=== PATIENT | female | born 1935 | race Caucasian/White ===

== ENCOUNTER 2017-01-27 04:53 | Emergency (ER) | payer BC, MEDICAID ==
--- NOTE | 2017-01-27 05:06 | Emergency Department Record ---
History of Present Illness - General Chief Complaint: Fall Injury Stated Complaint: FALL Time Seen by Provider: 01/27/17 05:00 Source: Patient Mode of Arrival: EMS Limitations: No limitations - History of Present Illness Initial Comments: 81 yo female presents to ED with a CC of fall from [facility] this morning. Patient reports trip and fall this morning, denies injury. Patient denies pain to the head or neck, denies any extremity pain or weakness. Complaint: Fall Onset/Timin -: Hour(s) When Fall Occurred: [address] Fall Occurred: Home Loss of Consciousness: None Prolonged Down Time?: No Symptoms Prior to Fall: None Severity: Mild - Em Coma Scale Eye Response: (4) Open spontaneously Motor Response: (6) Obeys commands Verbal Response: (5) Oriented [place] Total: 15 - Related Data Home Medications Medication Instructions Recorded Confirmed Last Taken Acetaminophen [Tylenol Extra 500 mg PO TID 12/31/15 01/27/17 01/26/17 Strength] Aspirin, Regular 81 mg PO DAILY 12/31/15 01/27/17 01/27/17 Atorvastatin Calcium [Lipitor] 10 mg PO QHS 12/31/15 01/27/17 01/26/17 Citalopram Hydrobromide [Celexa] 40 mg PO DAILY 12/31/15 01/27/17 01/26/17 Cyclosporine [Restasis] 1 each OP BID 12/31/15 01/27/17 12/31/15 Lisinopril 5 mg PO DAILY 12/31/15 01/27/17 01/26/17 Magnesium Hydroxide [Milk of 30 ml PO ASDIR PRN 12/31/15 01/27/17 Unknown Magnesia] Memantine HCl [Namenda Xr] 28 mg PO DAILY 12/31/15 01/27/17 01/26/17 Metoprolol Succinate [Toprol Xl] 25 mg PO DAILY 12/31/15 01/27/17 01/26/17 Omeprazole 40 mg PO DAILY 12/31/15 01/27/17 01/26/17 Fexofenadine HCl 180 mg PO DAILY 04/13/16 01/27/17 01/26/17 Hydrochlorothiazide [Hctz 25Mg] 12.5 mg PO DAILY 04/13/16 01/27/17 01/26/17 Ipratropium [place] [Atrovent] 2 spray NS TID 04/13/16 01/27/17 Unknown Potassium Chloride [Klor-Con] 10 meq PO DAILY 04/13/16 01/27/17 01/26/17 Acetaminophen [Tylenol 325Mg] 325 mg PO Q4H PRN 07/17/16 01/27/17 Unknown Acetaminophen with Codeine 1 tab PO Q6H PRN 07/17/16 01/27/17 01/20/17 [Tylenol #3] Guaifen/Dextromethorphan/PE 5 ml PO Q6H PRN 07/17/16 01/27/17 Unknown [Robafen Cf Liquid] Guaifenesin [Mucinex] 600 mg PO BID PRN 07/17/16 01/27/17 Unknown Polyethylene Glycol 3350 [Miralax] 1 packet PO DAILY PRN 07/17/16 01/27/17 Unknown Guaifen/Dextromethorphan/PE 10 ml PO Q6H PRN 01/27/17 01/27/17 01/13/17 [Robafen Cf Liquid] Meloxicam [Mobic] 7.5 mg PO DAILY 01/27/17 01/27/17 01/26/17 Memantine HCl [Namenda Xr] 28 mg PO DAILY 01/27/17 01/27/17 01/26/17 Allergies Allergy/AdvReac Type Severity Reaction Status Date / Time Sulfa (Sulfonamide Allergy Unknown PT UNSURE Verified 07/17/16 19:06 Antibiotics) OF REACTION Review of Systems Constitutional: Denies: Chills, Fever Eyes: Denies: Eye discharge, Eye pain ENT: Denies: Congestion, Ear pain Respiratory: Denies: Cough, Dyspnea Cardiovascular: Denies: Chest pain, Dyspnea on exertion Endocrine: Denies: Fatigue, Heat or cold intolerance Gastrointestinal: Denies: Diarrhea, Nausea, Vomiting Genitourinary: Denies: Dysuria, Frequency Musculoskeletal: Denies: Arthralgia, Back pain, Gout, Joint swelling Skin: Denies: Bruising, Change in color Neurological: Denies: Abnormal gait, Confusion, Headache, Seizure Psychiatric: Denies: Anxiety Hematological/Lymphatic: Denies: Anemia, Blood Clots Past Medical History - SOCIAL HISTORY Smoking Status: Former smoker - RESPIRATORY Hx Respiratory Disorders: Yes Hx COPD: Yes - CARDIOVASCULAR Hx Cardio Disorders: Yes Hx Hypertension: Yes Comment:: Chronic ischemic heart disease; hyperlipidemia - NEURO Hx Neuro Disorders: Yes Hx CVA: Yes Hx Dementia: Yes Hx TIA: Yes Comment:: Hemiplegia, hemiparesis- L side - GI Hx GI Disorders: Yes Hx Reflux: Yes Comment:: Mcdonald's esophagus - Hx Genitourinary Disorders: Yes Comment:: urinary retention - ENDOCRINE Hx Endocrine Disorders: Yes Hx Diabetes: Yes - MUSCULOSKELETAL Hx Musculoskeletal Disorders: Yes - PSYCH Hx Psych Problems: No - HEMATOLOGY/ONCOLOGY Hx Hematology/Oncology Disorders: No Family Medical History Family Hx Comment (NOT TO BE USED IN PLACE OF ITEMS BELOW): unknown Hx Heart Disease: Brother/Sister Physical Exam - General General Appearance: Alert, Oriented x3, Cooperative, No acute distress Limitations: No limitations - Head Head exam: Atraumatic, Normocephalic, Normal inspection Head exam detail: negative: Abrasion, Contusion, Moreira's sign, General tenderness, Hematoma, Laceration - Eye Eye exam: Normal appearance. negative: Conjunctival injection, Periorbital swelling, Periorbital tenderness, Scleral icterus - ENT Ear exam: negative: Auricular hematoma, Auricular trauma Nasal Exam: negative: Active bleeding, Discharge, Dried blood, Foreign body Mouth exam: negative: Drooling, Laceration, Muffled voice, Tongue elevation - Neck Neck exam: Normal inspection. negative: Meningismus, Tenderness - Respiratory Respiratory exam: Normal lung sounds bilaterally. negative: Rales, Respiratory distress, Rhonchi, Stridor - Cardiovascular Cardiovascular Exam: Regular rate, Normal rhythm, Normal heart sounds - GI/Abdominal GI/Abdominal exam: Soft. negative: Rebound, Rigid, Tenderness - Rectal Rectal exam: Deferred - exam: Deferred - Extremities Extremities exam: Normal inspection. negative: Calf tenderness, Pedal edema, Tenderness - Back Back exam: Denies: CVA tenderness (R), CVA tenderness (L) - Neurological Neurological exam: Alert, Oriented X3. negative: Motor sensory deficit - Psychiatric Psychiatric exam: Normal affect, Normal mood - Skin Skin exam: Normal color. negative: Abrasion Type of lesion: negative: abrasion Course - Reevaluation(s) Reevaluation #1: 01/27/17 05:05 Patient is well appearing on examination, no evidence for acute injury or CVA. Will obtain imaging of the head and neck and reassess. Reevaluation #2: 01/27/17 05:51 CT Brain: Scalp STS, no underlying intracranial injury is present. CT Cervical Spine: No acute traumatic injury identified. Disposition Disposition: Discharge Clinical Impression: Fall Qualifiers: Encounter type: initial encounter Qualified Code(s): W19.XXXA - Unspecified fall, initial encounter Disposition: Home, Self-Care Condition: (2) Stable Instructions: Fall Prevention for Older Adults (ED) Additional Instructions: Return to ED if your symptoms worsen or if you have any concerns. Follow-up with your family doctor in 3-5 days as directed. Forms: Patient Portal Access Time of Disposition: 06:07
== END 2017-01-27 08:00 | disposition home or self-care (01) ==
LOC: ER 04:53
DX: S09.90XA Unspecified injury of head, initial encounter (principal); S19.9XXA Unspecified injury of neck, initial encounter; R51 Headache; W01.0XXA Fall on same level from slipping, tripping and stumbling without subsequent striking against object, initial encounter; Y92.129 Unspecified place in nursing home as the place of occurrence of the external cause
CPT/HCPCS: 70450; 72125; 99283

== ENCOUNTER 2017-07-13 20:41 | Emergency (ER) | payer BC, MEDICAID ==
[2017-07-13] MEDS ORDERED: HYDROCODONE/APAP 5/325MG TABLET PO ONE (21:18)
[2017-07-13 21:39] LABS: BASO % 0.6 % (0-6); EOS % 2.6 % (0-6); GRAN % 43.2 % (47-80); HEMATOCRIT 33.9 % (35.0-47.0); HEMOGLOBIN 10.7 gm/dl (11.6-16.0); LYMPH % 42.4 % (16-45); MEAN CELL VOLUME 102.1 fl (81-97); MEAN CORPUSCULAR HEMOGLOBIN 32.2 pg (27-33); MEAN CORPUSCULAR HGB CONC 31.6 g/dl (32-36); MEAN PLATELET VOLUME 9.7 fl (7.4-10.4); MONO % 11.2 % (0-9); PLATELET COUNT 256 K/uL (130-400); RED BLOOD COUNT 3.32 M/uL (3.80-5.40); RED CELL DISTRIBUTION WIDTH 14.6 % (11.5-14.5); WHITE BLOOD COUNT W/O DIFF 6.3 K/uL (4.2-12.2)
--- NOTE | 2017-07-13 21:47 | Emergency Department Record ---
History of Present Illness - General Chief Complaint: Back Pain/Injury Stated Complaint: BACK PAIN Time Seen by Provider: 07/13/17 20:47 Source: Patient, Family Mode of Arrival: Ambulatory Limitations: No limitations - History of Present Illness Initial Comments: pt has a hx of chronic back pain in the past which has gotten worse in last day. she does not recall any new injury. no neuro symmptoms. the pain is in the right lower back with radiation down right leg. MD Complaint: Back pain Onset/Timin -: Days(s) Similar Symptoms Previously: Yes Place: Home Consistency: Constant Improves With: None Worsens With: None Associated Symptoms: Denies other symptoms Treatments Prior to Arrival: Acetaminophen - Related Data Home Medications Medication Instructions Recorded Confirmed Last Taken Calcium Carbonate [Tums] 500 mg PO Q6H 07/13/17 07/13/17 Unknown Donepezil HCl [Aricept] 10 mg PO DAILY 07/13/17 07/13/17 Unknown Lisinopril [Zestril] 5 mg PO DAILY 07/13/17 07/13/17 Unknown Previous Rx's Medication Instructions Recorded Hydrocodone/Acetaminophen [[place] 0.5 each PO TID #7 tablet 07/13/17 5-325 Tablet] Allergies Allergy/AdvReac Type Severity Reaction Status Date / Time Sulfa (Sulfonamide Allergy Unknown PT UNSURE Verified 07/17/16 19:06 Antibiotics) OF REACTION Travel Screening - Travel/Exposure Within Last 30 Days Have you traveled within the last 30 days?: No - Travel/Exposure Within Last Year Have you traveled outside the [place] in the last year?: No - Additonal Travel Details Have you been exposed to anyone with a communicable illness?: No - Travel Symptoms Symptom Screening: None Review of Systems Reviewed: No additional complaints except as noted below Constitutional: Reports: As per HPI. Denies: Chills, Fever, Malaise, Night sweats, Weakness, Weight change Eyes: Reports: As per HPI. Denies: Eye discharge, Eye pain, Photophobia, Vision change ENT: Reports: As per HPI. Denies: Congestion, Dental pain, Ear pain, Epistaxis , Hearing loss, Throat pain Respiratory: Reports: As per HPI. Denies: Cough, Dyspnea, Hemoptysis, Stridor, Wheezes Cardiovascular: Reports: As per HPI. Denies: Arrhythmia, Chest pain, Dyspnea on exertion, Edema, Murmurs, Orthopnea, Palpitations, Paroxysmal nocturnal dyspnea, Rheumatic Fever, Syncope Endocrine: Reports: As per HPI. Denies: Fatigue, Heat or cold intolerance, Polydipsia, Polyuria Gastrointestinal: Reports: As per HPI. Denies: Abdominal pain, Constipation, Diarrhea, Hematemesis, Hematochezia, Melena, Nausea, Vomiting Genitourinary: Reports: As per HPI. Denies: Abnormal menses, Discharge, Dyspareunia, Dysuria, Frequency, Hematuria, Incontinence, Retention, Urgency Musculoskeletal: Reports: As per HPI. Denies: Arthralgia, Back pain, Gout, Joint swelling, Myalgia, Neck pain Skin: Reports: As per HPI. Denies: Bruising, Change in color, Change in hair/ nails, Lesions, Pruritus, Rash Neurological: Reports: As per HPI. Denies: Abnormal gait, Confusion, Headache, Numbness, Paresthesias, Seizure, Tingling, Tremors, Vertigo, Weakness Psychiatric: Reports: As per HPI. Denies: Anxiety, Auditory hallucinations, Depression, Homicidal thoughts, Suicidal thoughts, Visual hallucinations Hematological/Lymphatic: Reports: As per HPI. Denies: Anemia, Blood Clots, Easy bleeding, Easy bruising, Swollen glands Past Medical History - SOCIAL HISTORY Smoking Status: Former smoker Alcohol Use: None Drug Use: None - RESPIRATORY Hx Respiratory Disorders: Yes Hx COPD: Yes - CARDIOVASCULAR Hx Cardio Disorders: Yes Hx Hypertension: Yes Comment:: Chronic ischemic heart disease; hyperlipidemia - NEURO Hx Neuro Disorders: Yes Hx CVA: Yes Hx Dementia: Yes Hx TIA: Yes Comment:: Hemiplegia, hemiparesis- L side - GI Hx GI Disorders: Yes Hx Reflux: Yes Comment:: Mcdonald's esophagus - Hx Genitourinary Disorders: Yes Comment:: urinary retention - ENDOCRINE Hx Endocrine Disorders: Yes Hx Diabetes: Yes - MUSCULOSKELETAL Hx Musculoskeletal Disorders: Yes Comment:: increased falls - PSYCH Hx Psych Problems: No - HEMATOLOGY/ONCOLOGY Hx Hematology/Oncology Disorders: No Family Medical History Any Significant Family History?: No Family Hx Comment (NOT TO BE USED IN PLACE OF ITEMS BELOW): unknown Hx Heart Disease: Brother/Sister Physical Exam - General General Appearance: Alert, Oriented x3, Cooperative, Mild distress - Head Head exam: Normal inspection - Eye Eye exam: Normal appearance, PERRL, EOMI Pupils: Normal accommodation - ENT ENT exam: Normal exam, Mucous membranes moist, Normal external ear exam, Normal orophraynx Ear exam: Normal external inspection. negative: External canal tenderness Nasal Exam: Normal inspection. negative: Discharge, Sinus tenderness Mouth exam: Normal external inspection, Tongue normal Teeth exam: Normal inspection. negative: Dental caries Throat exam: Normal inspection. negative: Tonsillar erythema, Tonsillar exudate - Neck Neck exam: Normal inspection, Full ROM. negative: Tenderness - Respiratory Respiratory exam: Normal lung sounds bilaterally. negative: Respiratory distress - Cardiovascular Cardiovascular Exam: Regular rate, Normal rhythm, Normal heart sounds - GI/Abdominal GI/Abdominal exam: Soft, Normal bowel sounds. negative: Tenderness - Rectal Rectal exam: Deferred - exam: Deferred - Extremities Extremities exam: Normal inspection, Full ROM, Normal capillary refill. negative: Tenderness - Back Back exam: Reports: Muscle spasm, Tenderness. Denies: Full ROM, Rash noted - Neurological Neurological exam: Alert, CN II-XII intact, Normal gait, Oriented X3 - Psychiatric Psychiatric exam: Normal affect, Normal mood - Skin Skin exam: Dry, Intact, Normal color, Warm Course Vital Signs 07/13/17 20:45 Temperature 97.9 F Pulse Rate 53 L Respiratory 20 Rate Blood Pressure 133/64 Pulse Ox 95 - Reevaluation(s) Reevaluation #1: 07/13/17 22:23 feels better Medical Decision Making - Lab Data Result diagrams: 07/13/17 21:33 07/13/17 21:33 Lab Results 07/13/17 Range/Units 21:33 WBC 6.3 (4.2-12.2) K/uL RBC 3.32 L (3.80-5.40) M/uL Hgb 10.7 L (11.6-16.0) gm/dl Hct 33.9 L (35.0-47.0) % MCV 102.1 H (81-97) fl MCH 32.2 (27-33) pg MCHC 31.6 L (32-36) g/dl RDW 14.6 H (11.5-14.5) % Plt Count 256 (130-400) K/uL MPV 9.7 (7.4-10.4) fl Gran % 43.2 L (47-80) % Lymphocytes % 42.4 (16-45) % Monocytes % 11.2 H (0-9) % Eosinophils % 2.6 (0-6) % Basophils % 0.6 (0-6) % Disposition Disposition: Discharge Clinical Impression: Sciatica Qualifiers: Laterality: right Qualified Code(s): M54.31 - Sciatica, right side Disposition: Home, Self-Care Condition: (1) Good Instructions: Low Back Strain (ED), Sciatica (ED), Lumbar Radiculopathy (ED) Additional Instructions: follow up with family doctor. return sooner if worse. moist heat to back 4 times a day Prescriptions: Hydrocodone/Acetaminophen [[place] 5-325 Tablet] 0.5 each PO TID #7 tablet Forms: Patient Portal Access Quality - Quality Measures Quality Measures: N/A - Blood Pressure Screening Does Patient Have Any of the Following: No Blood Pressure Classification: Pre-Hypertensive BP Reading Systolic Measurement: 133 Diastolic Measurement: 64 Screening for High Blood Pressure: < Pre-Hypertensive BP, F/U Documented > [ G8950] Pre-Hypertensive Follow-up Interventions: Follow-up with rescreen every year.
[2017-07-13 21:55] LABS: BLOOD UREA NITROGEN 25 mg/dL (8-23); CREATININE 0.9 mg/dL (0.5-0.9); EST GLOMERULAR FILTRATION RATE > 60 mL/min; GLUCOSE,RANDOM 112 mg/dL (74-109)
--- NOTE | 2017-07-14 14:39 | RADIOLOGY REPORT ---
EXAM: LUMBAR SPINE, AP AND LATERAL VIEWS HISTORY: RIGHT LOWER BACK PAIN. NO REPORTED INJURY. TECHNIQUE: AP and lateral views of the lumbar spine were obtained as well as a spot lateral view of the lumbosacral junction. Comparison: Lumbar spine two views dated 07/17/16. FINDINGS: Diffuse osteopenia limits evaluation. Five non-rib bearing lumbar type vertebra redemonstrated. Mild dextroconvex scoliosis centered at the L1- L2 level is redemonstrated with secondary to levoconvex curvature centered at the L4-L5 level. There is straightening of the normal cervical lordosis. No acute fracture nor dislocation is seen. No lytic or blastic bone lesion. Multilevel degenerative disk/degenerative end plate changes are identified most pronounced at the L2-L3 level where the changes are moderate to advanced. They are mild at the L1-L2, L3-L4, and L5-S1 levels and mild to moderate at the L4- L5 level. Multilevel facet arthropathy is suggested most pronounced at the lower levels where they are moderate in degree. There is diffuse atherosclerosis without gross aneurysmal dilatation of the abdominal aorta. There are mild degenerative changes of the hips. Surgical clips project at the level of the proximal stomach. IMPRESSION: 1. DIFFUSE OSTEOPENIA LIMITS EVALUATION. 2. MULTILEVEL DEGENERATIVE CHANGES, DISCUSSED ABOVE ASSOCIATED WITH MILD S- SHAPED SCOLIOSIS. NO ACUTE FRACTURE NOR DESTRUCTIVE BONE LESION. NO GROSS CHANGE SINCE 07/17/16. JOB NUMBER: [id number] MTDD
== END 2017-07-13 22:41 | disposition home or self-care (01) ==
LOC: ER 20:41
DX: M54.31 Sciatica, right side (principal); J44.9 Chronic obstructive pulmonary disease, unspecified; I69.954 Hemiplegia and hemiparesis following unspecified cerebrovascular disease affecting left non-dominant side; I10 Essential (primary) hypertension; Z87.891 Personal history of nicotine dependence
CPT/HCPCS: 72100; 80048; 85025; 99283; 99284

== ENCOUNTER 2018-03-21 10:50 | Day surgery (SDC) | payer BC ==
[~2018-03-21 10:50] MED LIST: ACETAMINOPHEN 1,000 MG/100 ML BTL IV ONE; CEFAZOLIN 1 Gram 1 GM/50 ML BAG IVPB ONE
[2018-03-21] MEDS ORDERED: BUPIVACAINE 0.25% W/EPI MPF 30ML VIAL IVP ONE (10:51)
[2018-03-21] MEDS ORDERED: PROPOFOL 10 MG/ML VIAL IV ONE (10:51)
[2018-03-21] MEDS ORDERED: LIDOCAINE 1% MDV (10MG/ML) 20ML VIAL SQ ONE (10:51)
--- NOTE | 2018-03-22 08:20 | Operative Note ---
DATE OF SURGERY: 03/21/2018 Surgeon: Dominguez Power DO PREOPERATIVE DIAGNOSIS: Chest wall mass. POSTOPERATIVE DIAGNOSIS: Chest wall mass. OPERATION: Excision of chest wall mass measuring 3 x 2 cm in the subcu. Indication: The patient is an 82-year-old female who underwent a prior CABG procedure. She did develop what appeared to be infected sebaceous cyst overlying the Y on her chest. The infection had cleared up. We did discuss excision. Risks, benefits, and alternatives were discussed. Risks include bleeding, infection, postop wound infection, recurrence, need for local wound care and packing. She understood this fully. Thereafter, consent was signed and questions answered. PROCEDURE: The patient was taken to the operating room and placed in a supine position. Local IV sedation was given per the department of anesthesia. The patient's chest was prepped and draped in the usual sterile fashion. The area over the mass was anesthetized with a total of 8 mL of 0.25% Sensorcaine with epinephrine. A 3 cm incision was made. This was carried down to the capsule of what appeared to be a large sebaceous cyst. This was dissected free from the surrounding tissue and passed off the field. This did overly one of her inferior sternal wires. There is no active infection noted. The skin was then closed with 4-0 nylon in interrupted fashion. Triple antibiotic ointment was placed. She was taken to the recovery room in satisfactory condition. Final pathology pending. CC: Tad Loera DO [facility]
== END 2018-03-21 12:50 | disposition home or self-care (01) ==
LOC: SUR 10:50
PROVIDERS: ATTEND Surgery
DX: L72.3 Sebaceous cyst (principal); I10 Essential (primary) hypertension; E78.00 Pure hypercholesterolemia, unspecified; F03.90 Unspecified dementia, unspecified severity, without behavioral disturbance, psychotic disturbance, mood disturbance, and anxiety; M19.90 Unspecified osteoarthritis, unspecified site

== ENCOUNTER 2018-08-18 11:47 | Observation (INO) | payer BC, MEDICAID ==
--- NOTE | 2018-08-18 12:03 | Emergency Department Record ---
History of Present Illness - General Chief Complaint: Fall Injury Stated Complaint: FALL Time Seen by Provider: 08/18/18 11:55 Source: Patient, EMS Mode of Arrival: EMS Limitations: No limitations - History of Present Illness Initial Comments: The patient is here due to slipping out of her wheelchair and hitting the back of her head on an unknown object. There was no reported LOC but the patient does have mild head pain. She has had no visual changes, neck pain, nausea, vomiting, confusion and is NOT on any blood thinners. MD Complaint: Fall Onset/Timin -: Minutes(s) - Related Data Previous Rx's Medication Instructions Recorded Lisinopril [Prinivil] 10 mg PO DAILY #30 tab 08/18/18 Allergies Allergy/AdvReac Type Severity Reaction Status Date / Time Sulfa (Sulfonamide Allergy Unknown PT UNSURE Verified 08/18/18 11:57 Antibiotics) OF REACTION Review of Systems Constitutional: Denies: Chills, Fever Eyes: Denies: Eye discharge ENT: Denies: Congestion Respiratory: Denies: Cough, Dyspnea Cardiovascular: Denies: Chest pain Endocrine: Denies: Fatigue Gastrointestinal: Denies: Abdominal pain Genitourinary: Denies: Dysuria Musculoskeletal: Denies: Back pain Skin: Denies: Bruising Past Medical History - SOCIAL HISTORY Smoking Status: Former smoker Alcohol Use: None Drug Use: None - RESPIRATORY Hx Respiratory Disorders: Yes Hx Asthma: Yes (controlled) Hx COPD: Yes (former smoker for 30 years) Hx Pneumonia: Yes (walking pneumonia several times, last 2014) - CARDIOVASCULAR Hx Cardio Disorders: Yes Hx Hypertension: Yes (controlled now, had been very elevated in past) Hx Coronary Artery Disease: Yes Hx Coronary Artery Bypass Graft: Yes (TCABG 2010 after following stress test) Comment:: Chronic ischemic heart disease; hyperlipidemia - NEURO Hx Neuro Disorders: Yes Hx CVA: Yes (09/04/15) Hx Dementia: Yes ([place] and aricept,poot STM and LTM) Hx TIA: Yes (X5, prior to CVA) Hx Weakness: Yes (left side following CVA in 2010) Comment:: hemiparesis- L side - GI Hx GI Disorders: Yes Hx Reflux: Yes Hx Wt Loss/Wt Gain: Yes Comment:: Mcdonald's esophagus - Hx Genitourinary Disorders: Yes Hx Bladder Problem: Yes (Occ urinary and stool incontinence) Comment:: ?urinary retention - ENDOCRINE Hx Endocrine Disorders: Yes Hx Diabetes: Yes - MUSCULOSKELETAL Hx Musculoskeletal Disorders: Yes Hx Arthritis: Yes (low back, right back) Hx Osteoporosis: Yes Comment:: increased falls - PSYCH Hx Psych Problems: Yes Hx Anxiety: Yes (Combined, has depression/anxiety episodes) Hx Behavior Problems: Yes (associated with dementia) Hx Depression: Yes - HEMATOLOGY/ONCOLOGY Hx Hematology/Oncology Disorders: Yes Hx Cancer: Yes (melanoma around rectum) Family Medical History Any Significant Family History?: Yes Family Hx Comment (NOT TO BE USED IN PLACE OF ITEMS BELOW): unknown Hx Heart Disease: Father, Mother, Brother/Sister *Heart Comment: Brother, [place] 28, brother-recent CABG, daughter-[place] age 52 Hx HTN: Brother/Sister *HTN Comment: children,granddaughter Physical Exam - General General Appearance: Alert, Cooperative, No acute distress - Head Head exam: Normocephalic, Normal inspection. negative: Atraumatic (There is tenderness over the occiput but no hematoma, swelling, or abrasions are visualized.) - Eye Eye exam: Normal appearance, PERRL - ENT Throat exam: Normal inspection. negative: Tonsillar erythema, Tonsillar exudate - Neck Neck exam: Normal inspection, Full ROM. negative: Tenderness (There is no Cpine tenderness.) - Respiratory Respiratory exam: Normal lung sounds bilaterally. negative: Respiratory distress - Cardiovascular Cardiovascular Exam: Regular rate, Normal rhythm, Normal heart sounds - GI/Abdominal GI/Abdominal exam: Soft, Normal bowel sounds. negative: Tenderness - Extremities Extremities exam: Normal inspection, Full ROM, Normal capillary refill. negative: Tenderness - Back Back exam: Reports: Normal inspection. Denies: Vertebral tenderness - Neurological Neurological exam: Alert Course - Reevaluation(s) Reevaluation #1: The patient is doing well. She is conversing normally and denies any weakness or TAYLOR. I did discuss the plan with the patient's daughter and will recommend increasing the Lisinopril to 10 mg daily due to the elevated BP. 08/18/18 12:57 08/18/18 14:41 Reevaluation #2: The patient is ambulating normally with her walker and has no weakness, pain or dizziness. I did discuss the case with Dr. Loera and he agrees with the plan to increase the dose to 10 mg daily. The patient is laughing and joking with the staff and she has no complaints. 08/18/18 13:01 08/18/18 14:30 Reevaluation #3: The patient remains symptom free. The patient's daughter continues to be reluctant to take the patient back to [facility] due to her BP of 190/100. I did discuss the issues with Dr. Loera and he would like the patient to have a single dose of Clonidine to lower her BP prior to her returning to [facility]. The patient's BP has been elevated in the past similar to today also so it is not a new issue. 08/18/18 14:41 08/18/18 14:53 Reevaluation #4: The patient's BP now is actually a little low now. It is running 90's/50's. She is not symptomatic but due to her age and fraility we will do a short stay admission. I did discuss the case with Dr. Gamez and she does agree to the admission. 08/18/18 17:40 Medical Decision Making - Data Complexity MDM Data: Labs Ordered and/or Reviewed, X-Ray Ordered and/or Reviewed, EKG Ordered and/or Reviewed - Lab Data Result diagrams: 08/18/18 14:50 08/18/18 14:50 - EKG Data -: EKG Interpreted by Me EKG: No Acute Changes, Unchanged From Previous - Radiology Data Radiology results: Report reviewed (Head and neck CT: No acute changes.) Disposition Disposition: Admit Clinical Impression: Fall Qualifiers: Encounter type: initial encounter Qualified Code(s): W19.XXXA - Unspecified fall, initial encounter Disposition: Still a Patient at [facility] Decision to Admit: Admit from ER Decision to Admit Date: 08/18/18 Decision to Admit Time: 17:42 Accepting Physician: Marie Time Discussed w/Accepting Physician: 17:42 Condition: (2) Stable Instructions: Fall Prevention for Older Adults (ED) Additional Instructions: Please increase the Lisinopril to [address] see Dr[address] Loera on Wednesday for recheck. Return to the ER for any worsening symptoms. Prescriptions: Lisinopril [Prinivil] 10 mg PO DAILY #30 tab Forms: Patient Portal Access Time of Disposition: 13:03 Quality - Quality Measures Quality Measures: N/A - Blood Pressure Screening View Details: Yes Does Patient Have Any of the Following: Active Dx of HTN Blood Pressure Classification: Hypertensive Reading Systolic Measurement: 199 Diastolic Measurement: 109 Screening for High Blood Pressure: Patient Exclusion, Hx of HTN [G9744]
[2018-08-18] MEDS ORDERED: LISINOPRIL 5 MG TABLET PO ONE (13:01)
[2018-08-18] MEDS ORDERED: CLONIDINE HCL 0.1 MG TABLET PO ONE (14:39)
[2018-08-18 15:02] LABS: BASO % 0.4 % (0-6); EOS % 1.8 % (0-6); HEMATOCRIT 38.2 % (35.0-47.0); HEMOGLOBIN 12.5 gm/dl (11.6-16.0); LYMPH % 40.4 % (16-45); MEAN CORPUSCULAR HEMOGLOBIN 31.7 pg (27-33); MEAN CORPUSCULAR HGB CONC 32.7 g/dl (32-36); MEAN PLATELET VOLUME 9.7 fl (7.4-10.4); MONO % 7.4 % (0-9); PLATELET COUNT 279 K/uL (130-400); RED BLOOD COUNT 3.94 M/uL (3.80-5.40); RED CELL DISTRIBUTION WIDTH 14.6 % (11.5-14.5); WHITE BLOOD COUNT W/O DIFF 5.7 K/uL (4.2-12.2)
[2018-08-18 16:13] LABS: BLOOD UREA NITROGEN 11 mg/dL (8-23); CREATININE 0.7 mg/dL (0.5-0.9); EST GLOMERULAR FILTRATION RATE > 60 mL/min
[2018-08-18 16:14] LABS: TOTAL PROTEIN 6.4 g/dL (6.6-8.7)
[2018-08-18 16:16] LABS: GLUCOSE,RANDOM 93 mg/dL (74-109)
[2018-08-18 16:18] LABS: ALB/GLOB RATIO 1.8 (1.1-1.8); ALBUMIN 4.1 g/dL (4.0-5.0); ALKALINE PHOSPHATASE 60 U/L (35-104); ALT/SGPT 6 U/L (<33); AST/SGOT 14 U/L (10.0-35.0)
[2018-08-18] MEDS ORDERED: POTASSIUM CHLORIDE 20 MEQ TABLET PO ONE (16:29)
[2018-08-18] MEDS ORDERED: 0.9 % SODIUM CHLORIDE 1,000 ML BAG IV ONE (17:38)
[2018-08-18] MEDS ORDERED: PHENYLEPHRINE PO PRN (18:56)
[2018-08-18] MEDS ORDERED: GUAIFENESIN PO PRN (18:56)
[2018-08-18] MEDS ORDERED: ACETAMINOPHEN 325 MG TAB PO PRN (18:56)
[2018-08-18] MEDS ORDERED: DEXTROMETHORPHAN PO PRN (18:56)
[2018-08-18] MEDS: ATORVASTATIN 20 MG TABLET PO SCH (21:30)
[2018-08-18] MEDS ORDERED: IPRATROPIUM BROMIDE NS SCH (22:00)
[2018-08-18] MEDS ORDERED: Non-Formulary MISC (Cyclosporine [Restasis] 1 EACH) OP SCH (22:00)
--- NOTE | 2018-08-19 07:29 | CT SCAN REPORT ---
EXAM: CT OF THE BRAIN WITHOUT CONTRAST HISTORY: INJURY. TECHNIQUE: Sequential axial images were obtained from the foramen magnum to the vertex without contrast administration. FINDINGS: There is age appropriate cortical atrophy. There is periventricular small vessel ischemic change. There are small lacunar infarcts in the thalami. No large territorial infarct, hemorrhage, mass effect, or midline shift. No extraaxial fluid collection. The orbits appear normal. The mastoid air cells appear normal. There is no depressed skull fracture. IMPRESSION: 1. NO ACUTE INTRACRANIAL ABNORMALITY BY CT EXAMINATION. 2. PERIVENTRICULAR SMALL VESSEL ISCHEMIC CHANGE. SMALL LACUNAR INFARCTS IN BOTH THALAMI. JOB NUMBER: [id number] MTDD
--- NOTE | 2018-08-19 07:31 | CT SCAN REPORT ---
EXAM: CT OF THE CERVICAL SPINE HISTORY: INJURY. TECHNIQUE: Sequential axial images were obtained through the cervical spine without intravenous contrast administration. FINDINGS: There is no evidence of fracture, subluxation, or perched facet. There is facet arthropathy. The lateral masses are well aligned. The prevertebral soft tissues are normal. The airway is patent. IMPRESSION: MULTILEVEL DEGENERATIVE CHANGE. NO EVIDENCE OF FRACTURE, SUBLUXATION OR PERCHED FACET. JOB NUMBER: [id number] MTDD
[2018-08-19] MEDS: POTASSIUM CHLORIDE 10 MEQ TAB PO SCH (09:55)
[2018-08-19] MEDS: ASPIRIN 81 MG TABEC PO SCH (09:56)
[2018-08-19] MEDS ORDERED: DONEPEZIL HCL 5 MG TABLET PO SCH (10:00)
[2018-08-19] MEDS ORDERED: CITALOPRAM 20 MG TABLET PO SCH (10:00)
[2018-08-19] MEDS ORDERED: ASPIRIN 325 MG TABLET PO SCH (10:00)
[2018-08-19 11:15] LABS: URINE APPEARANCE CLEAR; URINE BILIRUBIN NEGATIVE (NEGATIVE); URINE BLOOD NEGATIVE (NEGATIVE); URINE COLOR YELLOW; URINE GLUCOSE (UA) NEGATIVE (NEGATIVE); URINE KETONE NEGATIVE (NEGATIVE); URINE LEUKOCYTE ESTERASE NEGATIVE (NEGATIVE); URINE NITRITE NEGATIVE (NEGATIVE); URINE PROTEIN NEGATIVE (NEGATIVE); URINE UROBILINOGEN 0.2 E.U./dL (0.20 - 1.00)
--- NOTE | 2018-08-19 13:10 | History & Physical ---
History of Present Illness - Date of Service Date of Service for History & Physical: 08/19/18 - History of Present Illness Admitting Diagnosis: 1. Labile blood pressure with Hypotension. History of Present Illness: PMH: HTN, CAD, Dementia, dysphagia ED COURSE: Daughter providing hx since the pt is a poor historian 2/2 to dementia. Daughter states that 2 days ago she was having dinner with her mother who was mumbling and couldn't focus very well. She states that she had asked the assisted living facility if they thought she should be evaluated for a stroke but she states that they said the hospital would not do anything for treatment if it was a stroke anyway. She decided not to bring her into the ER that day. Yesterday the daughter states that she received a phone call from the assisted living facility stating that the pt had a fall. She did not witness it but the pt did hit her head. She states that upon arrival to the ED her mother was complaining of a headache and her BP was elevated. Vitals: T98.5, P64, BP 199/109, RR 18 Labs: UA neg, CBC normal, CMP normal except K 3.3, TSH wnl. Imaging:CT head showed no acute process but old ischemic infarcts present. CT cervical spine did not show acute process. EKG: QTC 527, LVH otherwise wnl. Pt was given clonidine per Dr. Loera's permission and her BP dropped to 90/60' s. Pt was given some fluid to help bring up her BP and she was admitted overnight for observation given that she is at high risk for falls with her low BP. HOSPITAL COURSE: Today the daughter states that her mother is behaving about the same as she was over the last 2 days. She states that for the past 2 weeks she has noticed a decline in her mental function. She states that she also has generalized weakness. She believes that maybe it is time for her mother to be in a care facility that can offer her more attention. Her BP is back in normal range and the pt denies any headaches. Travel Screening - Travel/Exposure Within Last 30 Days Have you traveled within the last 30 days?: No - Travel/Exposure Within Last Year Have you traveled outside the [place] in the last year?: No - Additonal Travel Details Have you been exposed to anyone with a communicable illness?: No - Travel Symptoms Symptom Screening: None Review of Systems Constitutional: Reports: Weakness. Denies: Chills, Fever Eyes: Denies: Eye discharge, Vision change ENT: Denies: Congestion Respiratory: Denies: Cough, Dyspnea Cardiovascular: Denies: Chest pain Gastrointestinal: Denies: Abdominal pain, Constipation, Diarrhea, Nausea, Vomiting (Difficult to obtain given dementia) Genitourinary: Denies: Dysuria Musculoskeletal: Denies: Back pain Skin: Denies: Bruising Past Medical History - SOCIAL HISTORY Smoking Status: Former smoker Alcohol Use: None Drug Use: None - RESPIRATORY Hx Respiratory Disorders: Yes Hx Asthma: Yes (controlled) Hx COPD: Yes (former smoker for 30 years) Hx Pneumonia: Yes (walking pneumonia several times, last 2014) - CARDIOVASCULAR Hx Cardio Disorders: Yes Hx Hypertension: Yes (controlled now, had been very elevated in past) Hx Coronary Artery Disease: Yes Hx Coronary Artery Bypass Graft: Yes (TCABG 2011 after following stress test) Comment:: Chronic ischemic heart disease; hyperlipidemia - NEURO Hx Neuro Disorders: Yes Hx CVA: Yes (09/04/15) Hx Dementia: Yes (Onnamenda and aricept,poot STM and LTM) Hx TIA: Yes (X5, prior to CVA) Hx Weakness: Yes (left side following CVA in 2010) Comment:: hemiparesis- L side - GI Hx GI Disorders: Yes Hx Reflux: Yes Hx Wt Loss/Wt Gain: Yes Comment:: Mcdonald's esophagus - Hx Genitourinary Disorders: Yes Hx Bladder Problem: Yes (Occ urinary and stool incontinence) Comment:: ?urinary retention - ENDOCRINE Hx Endocrine Disorders: Yes Hx Diabetes: Yes - MUSCULOSKELETAL Hx Musculoskeletal Disorders: Yes Hx Arthritis: Yes (low back, right back) Hx Osteoporosis: Yes Comment:: increased falls - PSYCH Hx Psych Problems: Yes Hx Anxiety: Yes (Combined, has depression/anxiety episodes) Hx Behavior Problems: Yes (associated with dementia) Hx Depression: Yes - HEMATOLOGY/ONCOLOGY Hx Hematology/Oncology Disorders: Yes Hx Cancer: Yes (melanoma around rectum) Family Medical History Any Significant Family History?: Yes Family Hx Comment (NOT TO BE USED IN PLACE OF ITEMS BELOW): unknown Hx Heart Disease: Father, Mother, Brother/Sister *Heart Comment: Brother, [place] 28, brother-recent CABG, daughter-[place] age 52 Hx HTN: Brother/Sister *HTN Comment: children,granddaughter H&P Meds/Allergies - Allergies Allergies: Allergies Allergy/AdvReac Type Severity Reaction Status Date / Time Sulfa (Sulfonamide Allergy Unknown PT UNSURE Verified 08/18/18 11:57 Antibiotics) OF REACTION - Home Medications Previous Rx's Medication Instructions Recorded Lisinopril [Prinivil] 10 mg PO DAILY #30 tab 08/18/18 - Active Medications Active Medications: Current Medications Acetaminophen (Tylenol 325mg) 650 mg PO Q4H PRN PRN Reason: PAIN - MILD(1-4)/FEVER Last Admin: 08/19/18 01:43 Dose: 650 mg Aspirin (Ecotrin (Ec)) 81 mg PO DAILY [facility] Last Admin: 08/19/18 09:56 Dose: 81 mg Atorvastatin Calcium (Lipitor) 10 mg PO QHS [facility] Last Admin: 08/18/18 21:30 Dose: 10 mg Citalopram Hydrobromide (Celexa) 20 mg PO DAILY [facility] Last Admin: 08/19/18 09:57 Dose: 20 mg Hydrochlorothiazide (Hctz 12.5mg) 12.5 mg PO DAILY [facility] Lisinopril (Zestril) 5 mg PO DAILY [facility] Memantine (Namenda) 10 mg PO BID [facility] Non-Formulary Medication (Cyclosporine [Restasis]) 1 each OP BID [facility] Non-Formulary Medication (Guaifen/Dextromethorphan/Pe [Robafen Cf Liquid]) 5 ml PO Q6H PRN PRN Reason: COUGH Non-Formulary Medication (Ipratropium [place] [Atrovent]) 2 spray NS TID [facility] Potassium Chloride (Klor-Con) 10 meq PO DAILY [facility] Last Admin: 08/19/18 09:55 Dose: 10 meq Physical Exam - Vital Signs Vital Signs: Vital Signs - Last 24 Hrs Temp Pulse Pulse Resp BP BP Pulse Ox 08/19/18 10:00 97.9 F 64 18 132/68 93 L 08/19/18 09:00 55 L 64 18 08/19/18 06:44 99.4 F 08/19/18 05:00 100.4 F H 70 16 157/88 94 L 08/18/18 21:00 97.5 F L 47 L 16 118/53 95 08/18/18 18:56 97.7 F 55 L 16 74/29 96 08/18/18 17:31 56 L 18 98/42 95 08/18/18 16:48 70 99/52 08/18/18 15:55 188/90 08/18/18 14:45 190/100 08/18/18 14:23 66 18 185/95 94 L 08/18/18 13:53 66 18 180/78 98 08/18/18 13:29 66 20 203/102 - General General Appearance: Alert, Cooperative (smiling), No acute distress Limitations: Other (Pt has dementia is limited with orientation but is alert and follows commands well. Smiling) - Head Head exam: Normocephalic, Normal inspection. negative: Atraumatic (There is tenderness over the occiput but no hematoma, swelling, or abrasions are visualized.) - Eye Eye exam: Normal appearance, PERRL, EOMI. negative: Conjunctival injection, Periorbital swelling, Periorbital tenderness - ENT ENT exam: Normal exam, Mucous membranes moist Ear exam: Normal external inspection Nasal Exam: Normal inspection Throat exam: Normal inspection. negative: Tonsillar erythema, Tonsillar exudate - Neck Neck exam: Normal inspection, Full ROM - Respiratory Respiratory exam: Normal lung sounds bilaterally. negative: Respiratory distress - Cardiovascular Cardiovascular Exam: Regular rate, Normal rhythm, Systolic murmur (systolic ejection murmur, 3/6) - GI/Abdominal GI/Abdominal exam: Soft, Normal bowel sounds. negative: Tenderness - Extremities Extremities exam: Normal inspection, Full ROM. negative: Pedal edema, Tenderness - Neurological Neurological exam: Alert - Psychiatric Psychiatric exam: negative: Anxious, Depressed Results - Labs Result Diagrams: 08/18/18 14:50 08/18/18 14:50 Labs Last 24 Hours: Laboratory Results - last 24 hr 08/18/18 08/18/18 08/18/18 14:50 14:50 14:50 WBC 5.7 RBC 3.94 Hgb 12.5 Hct 38.2 MCV 97.0 MCH 31.7 MCHC 32.7 RDW 14.6 H Plt Count 279 MPV 9.7 Gran % 50.0 Lymphocytes % 40.4 Monocytes % 7.4 Eosinophils % 1.8 Basophils % 0.4 Sodium 143 Potassium 3.3 L Chloride 104 Carbon Dioxide 25.0 Anion Gap 14.0 BUN 11 Creatinine 0.7 Estimated GFR > 60 Random Glucose 93 Calcium 9.2 Total Bilirubin 0.40 AST 14 ALT 6 Alkaline Phosphatase 60 Total Protein 6.4 L Albumin 4.1 Globulin 2.3 Albumin/Globulin Ratio 1.8 TSH 1.34 Urine Color Urine Appearance Urine pH Ur Specific [place] Urine Protein Urine Glucose (UA) Urine Ketones Urine Blood Urine Nitrite Urine Bilirubin Urine Urobilinogen Ur Leukocyte Esterase 08/19/18 10:30 WBC RBC Hgb Hct MCV MCH MCHC RDW Plt Count MPV Gran % Lymphocytes % Monocytes % Eosinophils % Basophils % Sodium Potassium Chloride Carbon Dioxide Anion Gap BUN Creatinine Estimated GFR Random Glucose Calcium Total Bilirubin AST ALT Alkaline Phosphatase Total Protein Albumin Globulin Albumin/Globulin Ratio TSH Urine Color Yellow Urine Appearance Clear Urine pH 8.0 Ur Specific [place] 1.015 Urine Protein Negative Urine Glucose (UA) Negative Urine Ketones Negative Urine Blood Negative Urine Nitrite Negative Urine Bilirubin Negative Urine Urobilinogen 0.2 Ur Leukocyte Esterase Negative VTE H&P Assessment - Risk for VTE Risk for VTE: Yes Risk Level: Moderate Risk Assessment Date: 08/19/18 Risk Assessment Time: 13:40 VTE Orders Placed or Will Be Placed: No VTE Reason for No Prophylaxis: Contraindicated (given fall risk) Plan - Detailed Diagnosis and Plan (1) Altered mental status Current Visit: Yes Status: Acute Qualifiers: Altered mental status type: unspecified Qualified Code(s): R41.82 - Altered mental status, unspecified Base Code: R41.82 - ALTERED MENTAL STATUS, UNSPECIFIED Priority: High Comment: - Negative CT for acute process. 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 - Normal CBC, no evidence of infection. - Negative for pain today. No complaints/evidence of constipation or urinary retention. - Pt has dementia at baseline. Explained to daughter that dementia usually has a stepwise decline with time. - Continue memantine and donepezil. - cardiac monitor technician did not show arrythmia overnight. - Will D/C celexa and replace with zoloft given that celexa increases QTC with donepezil. - BP now at goal. - Rohit will need higher level of care, Case management c/s placed. (2) HTN, goal below 150/90 Current Visit: Yes Status: Chronic Base Code: I10 - ESSENTIAL (PRIMARY) HYPERTENSION Priority: High Comment: - Clonidine now starting to wear off. - Will restart home meds (lisinopril and HCTZ) in AM - If needed will also add back metoprolol 25 mg ER in AM (3) Hypokalemia Current Visit: Yes Status: Acute Base Code: E87.6 - HYPOKALEMIA Priority: Medium Comment: - S/P 20meq in ED and 10 meq in AM - will rpt in AM (4) Prolonged QT interval Current Visit: Yes Status: Acute Base Code: R94.31 - ABNORMAL ELECTROCARDIOGRAM [ECG] [EKG] Comment: - QTC 527 - Will D/C celexa and replace with zoloft given that celexa increases QTC with donepezil. - Rpt EKG in AM (5) Generalized weakness Current Visit: Yes Status: Acute Base Code: R53.1 - WEAKNESS Priority: High Comment: - Likely cause of fall in combination with worsening dementia. - PT and OT ordered. (6) Dementia Current Visit: Yes Status: Chronic Qualifiers: Dementia type: vascular dementia Dementia behavioral disturbance: with behavioral disturbance Qualified Code(s): F01.51 - Vascular dementia with behavioral disturbance Base Code: F03.90 - UNSPECIFIED DEMENTIA WITHOUT BEHAVIORAL DISTURBANCE Priority: Medium Comment: - likely worsening dementia. - Continue donepezil and mamantine as prescribed. (7) DVT prophylaxis Current Visit: Yes Status: Acute Base Code: GKD0200 - Priority: Low Comment: - Given recent falls and risk for intracranial bleed will hold off on pharmacotherapy at this time. Will continue aspirin as prescribed. - Will hold off on SCD's given that she has dementia and will likely agitate the pt and will contribute to delerium. Daughter states that the pt has sundowning issues. - Disposition pending PT/OT eval and placement
--- NOTE | 2018-08-19 14:15 | Rehab Evaluation ---
Patient Information - Patient Information Diagnosis: labile BP with hypotension Ordered Treatment: OT Evaluate and Treat Status: Initial Evaluation Surgery: No Past Medical/Surgical Hx: PAST MEDICAL/SURGICAL HISTORY Past Surgical History Appy; Hysterectomy; Triple Bypass; Rhizotomy; Excision melanoma around rectum X2 PMH - Respiratory Hx Respiratory Disorders Yes Hx Asthma Yes: controlled Hx Chronic Obstructive Yes: former smoker for 30 years Pulmonary Disease (COPD) Hx Pneumonia Yes: walking pneumonia several times, last 2014 PMH - Cardiovascular Hx Cardiovascular Disorders Yes Hx Hypertension Yes: controlled now, had been very elevated in past Hx Coronary Artery Disease Yes Hx Coronary Artery Bypass Yes: TCABG 2010 after following stress test Graft Hx Transient Ischemic Attacks Yes: X5, prior to CVA (TIA) Residual Deficits from CVA Yes: Dysphagia- fluids are thickened,weakness l side Comment: Chronic ischemic heart disease; hyperlipidemia PMH - Neuro Hx Neurological Disorders Yes Hx Cerebrovascular Accident Yes: 09/04/15 Hx Dementia Yes: Onnamenda and aricept,poot STM and LTM Hx Syncope Yes: hx of-related to BP over 1 year ago Hx Transient Ischemic Attacks Yes: X5, prior to CVA (TIA) Hx Weakness Yes: left side following CVA in 2010 Comment: hemiparesis- L side PMH - GI Hx Gastrointestinal Disorders Yes Hx Gastroesophageal Reflux Yes Hx Weight Loss/Weight Gain Yes Comment: Mcdonald's esophagus PMH - Hx Genitourinary Disorders Yes Patient No Hx Bladder Problem Yes: Occ urinary and stool incontinence Hx Renal Disease Yes: CKD stage 3 Comment: ?urinary retention PMH - Endocrine Hx Endocrine Disorders Yes Hx Diabetes Yes 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 Pt reports she lives alone in an apartment in [place] and is Ind with self cares , ambulates without an assistive device and eats in the cafeteria.) Social History: Detail (Supportive daughter and grand daughter) Precautions: [place], Fall - Time With Patient Total Time Spent With Patient (Min): 40 Treatment Procedures: Detail (OT eval low complexity) Subjective Information - Subjective Information Per Patient, Other (daughter and grand daughter) Objective Data - Pain Pain Present: No - Mental Status Patient Orientation: Person (Pt oriented to self, [facility] not able to state age or year, states month as "November". Pt able to follow all commands. Speech was slurred.) - Visual Perception Appears within normal limits for therapeutic activities - ROM Within normal limits (Ben UE AROM WNL) - Strength/Tone Within normal limits (Ben UE strength 4/5 throughout) - Coordination Appears within normal limits for therapeutic activities - Bed Mobility Independent (Ind with supine to sit) - Transfers Needs Assist (Min assist at times for sit to stand from EOB, wheelchair and toilet heights.) - Balance Balance Sitting: Good Balance Standing: Fair - Sensation Intact - Gait Detail (Pt amb short distance with 2 wheeled walker and CG assist as well as min assist to move walker at times.) - ADL's/IADL's Detail (Pt required mod assist to don slip on slippers. She was able to doff briefs with CG assist, toileted Indly, donned clean briefs with max assist to start over feet and to wire puller hips. Other ADLs not formally assessed.) Therapy Assessment - Therapy Assessment Detail (Pt presents with decreased orientation, decreased Ind with functional mobility and decreased Ind with self care skills. Family reports pts endurance has declined over the last couple of weeks.) Problem List - Problem List Occupational Therapy Problem List: Detail (1. Decreased Ind with self care skills. 2. Decreased orientation to place, month/year. 3. Decreased endurance needed for safe and Ind mobility and self cares.) Goals - Goals Occupational Therapy Goals: 1. Pt will be Ind and safe with total body dressing. 2. Pt will oriented to place and month. 3. Pt will improve overall endurance to allow safe and Ind functional mobility. Prognosis - Prognosis Good Plan - Plan Occupational Therapy Plan: OT 2-4 times per week to address self cares, functional mobility, cognition and activity tolerance. Pt would benefit from IP rehab stay to maximize her Ind and safety.
--- NOTE | 2018-08-19 14:18 | Rehab Evaluation ---
Patient Information - Patient Information Diagnosis: labile blood pressure, hypotension Ordered Treatment: PT Evaluate and Treat Status: Initial Evaluation History: Detail (Patient presented in ED on 08/18 after slipping out of her wheelchair at [facility] and hitting the back of her head.) Past Medical/Surgical Hx: PAST MEDICAL/SURGICAL HISTORY Past Surgical History Appy; Hysterectomy; Triple Bypass; Rhizotomy; Excision melanoma around rectum X2 PMH - Respiratory Hx Respiratory Disorders Yes Hx Asthma Yes: controlled Hx Chronic Obstructive Yes: former smoker for 30 years Pulmonary Disease (COPD) Hx Pneumonia Yes: walking pneumonia several times, last 2014 PMH - Cardiovascular Hx Cardiovascular Disorders Yes Hx Hypertension Yes: controlled now, had been very elevated in past Hx Coronary Artery Disease Yes Hx Coronary Artery Bypass Yes: TCABG 2010 after following stress test Graft Hx Transient Ischemic Attacks Yes: X5, prior to CVA (TIA) Residual Deficits from CVA Yes: Dysphagia- fluids are thickened,weakness l side Comment: Chronic ischemic heart disease; hyperlipidemia PMH - Neuro Hx Neurological Disorders Yes Hx Cerebrovascular Accident Yes: 09/04/15 Hx Dementia Yes: Onnamenda and aricept,poot STM and LTM Hx Syncope Yes: hx of-related to BP over 1 year ago Hx Transient Ischemic Attacks Yes: X5, prior to CVA (TIA) Hx Weakness Yes: left side following CVA in 2010 Comment: hemiparesis- L side PMH - GI Hx Gastrointestinal Disorders Yes Hx Gastroesophageal Reflux Yes Hx Weight Loss/Weight Gain Yes Comment: Mcdonald's esophagus PMH - Hx Genitourinary Disorders Yes Patient No Hx Bladder Problem Yes: Occ urinary and stool incontinence Hx Renal Disease Yes: CKD stage 3 Comment: ?urinary retention PMH - Endocrine Hx Endocrine Disorders Yes Hx Diabetes Yes Hx of NIDDM Yes: no oral meds for 2 years PMH - Musculoskeletal Hx Musculoskeletal Disorders Yes Hx Arthritis Yes: low back, right back Hx Osteoporosis Yes Comment: increased falls PMH - Psych Hx Psychiatric Problems Yes Hx Anxiety Yes: Combined, has depression/anxiety episodes Hx Behavior Problems Yes: associated with dementia Hx Depression Yes PMH - Hematology/Oncology Hx Hematology/Oncology Yes Disorders Hx Cancer Yes: melanoma around rectum Premorbid Status: Detail (The patient was a resident in [facility] and ambulated with walker and used a wheelchair for mobility. Per the patient's family, the patient had assistance with dressing and bathing.) Social History: Detail (Supportive family,) Precautions: [place], Fall - Time With Patient Total Time Spent With Patient (Min): 30 Treatment Procedures: Detail (Initial Evaluation) Subjective Information - Subjective Information Per Patient (The patient denied pain. The patient's speech was garbled at times. ) Objective Data - Mental Status Patient Orientation: Person (The patient knew her birthday but not age, current month or year. The patient stated when [facility] - ROM Within normal limits (The patient's LE AROM was WFL.) - Strength/Tone Not within normal limits (The patient's LE strength was generally 4 to 4+ throughout for patient's age.) - Bed Mobility Independent (The patient's bed mobility was independent with supine to sit.) - Transfers Needs Assist (The patient required minimal PA with sit to stand transfer and toilet transfer with verbal cues to push up from surface.) - Balance Balance Sitting: Good Balance Standing: Fair (The patient required support of walker to stand.) - Gait Detail (The patient ambulated with front wheeled walker a distance of 20 feet x 1 with CG/min assist at times to steer walker. The patient's gait pattern was charecterized by decreased stride length, shuffling steps and walker placed to far in front. The patient also required cueing to keep R foot within the walker. ) Therapy Assessment - Therapy Assessment Detail (The patient required assistance with transfers and ambulation. Due to cognitive status, the patient exhibited poor safety judement with mobility. The patient also exhibited decreased LE muscular endurance, expressing her legs were weak and tired. The patient's family was present for the evaluation. Recommend ongoing PT is a subacute rehabilitation setting to improve the patient 's functional level.) Problem List - Problem List Physical Therapy Problem List: Detail (1)Cognitive Status 2) Decreased LE muscular endurance 3) Assistance with transfers and ambulation 4) Decreased standing balance) Goals - Goals Physical Therapy Goals: 1) The patient will ambulate household distances with supervision for safety. 2) The patient will be independent / supervision with all transfers. 3) The patient will tolerate 30 minutes of physical activity with one rest period. 4) Assess the patient's balance using objective balance test. Prognosis - Prognosis Moderate Plan - Plan Physical Therapy Plan: PT 1 time a day M-F for gait training, transfer training , balance and LE strengthening/ muscular endurance exercises. Recommend subacute rehab.
[2018-08-19] MEDS: ATORVASTATIN 20 MG TABLET PO SCH (22:27)
[2018-08-20 06:52] LABS: HEMATOCRIT 35.9 % (35.0-47.0); HEMOGLOBIN 11.5 gm/dl (11.6-16.0); MEAN CELL VOLUME 97.3 fl (81-97); MEAN PLATELET VOLUME 9.7 fl (7.4-10.4); PLATELET COUNT 269 K/uL (130-400); RED BLOOD COUNT 3.69 M/uL (3.80-5.40); RED CELL DISTRIBUTION WIDTH 14.7 % (11.5-14.5); WHITE BLOOD COUNT W/O DIFF 5.3 K/uL (4.2-12.2)
[2018-08-20 06:58] LABS: MEAN CORPUSCULAR HEMOGLOBIN 31.1 pg (27-33)
[2018-08-20 07:10] LABS: PLATELET ESTIMATE NORMAL (NORMAL)
[2018-08-20 07:11] LABS: BLOOD UREA NITROGEN 12 mg/dL (8-23); CREATININE 0.7 mg/dL (0.5-0.9); EST GLOMERULAR FILTRATION RATE > 60 mL/min; GLUCOSE,RANDOM 91 mg/dL (74-109)
[2018-08-20] MEDS ORDERED: DONEPEZIL HCL 5 MG TABLET PO SCH (10:00)
[2018-08-20] MEDS ORDERED: HYDROCHLOROTHIAZIDE 12.5 MG CAPSULE PO SCH (10:00)
[2018-08-20] MEDS ORDERED: LISINOPRIL 5 MG TABLET PO SCH (10:00)
[2018-08-20] MEDS: LISINOPRIL 5 MG TABLET PO SCH ×2 (10:32→10:35)
[2018-08-20] MEDS: ASPIRIN 81 MG TABEC PO SCH (10:33)
[2018-08-20] MEDS: POTASSIUM CHLORIDE 10 MEQ TAB PO SCH (10:34)
[2018-08-20] MEDS: HYDROCHLOROTHIAZIDE 12.5 MG CAPSULE PO SCH ×2 (10:34)
[2018-08-20] MEDS: MEMANTINE HCL 10 MG TABLET PO SCH ×2 (10:36→21:11)
[2018-08-20] MEDS: SERTRALINE HCL 50 MG TABLET PO SCH (10:37)
[2018-08-20] MEDS: DONEPEZIL HCL 5 MG TABLET PO SCH (10:37)
--- NOTE | 2018-08-20 10:37 | Inpatient Certification ---
Inpatient Certification Admit to inpatient care: Based on my medical assessment, after consideration of patient's risk factors (age, co-morbidities and patient presenting symptoms and acuity), I expect that this patient will remain in the hospital greater than or equal to two midnights and that the services needed warrant inpatient care because: Patient Risk Factors: [severity of signs and symptoms, co-morbid conditions] Estimated length of stay: [3] The patient may reasonably be expected to be discharged or transferred to a hospital within 96 hours after admission to [facility]. Services needed: [case management, PT/OT] Post hospital care (if known): [PT/OT] I certify that my determination is in accordance with my understanding of Medicare requirements for reasonable and necessary inpatient services. 08/20/18 10:35
--- NOTE | 2018-08-20 10:43 | Physician Progress Note ---
Subjective - Date Date of Physician Progress Note: 08/20/18 - Subjective Subjective Comment: Doing well this morning. No complaints. Objective - Vital Signs Vital Signs: Vital Signs - Last 24 Hrs Temp Pulse Resp BP Pulse Ox 08/20/18 06:00 98.4 F 62 16 174/81 94 L 08/20/18 02:00 98.0 F 58 L 16 201/94 95 08/19/18 22:00 97.7 F 60 16 157/72 93 L 08/19/18 17:13 97 F L 65 18 117/52 92 L - General General Appearance: Alert, Cooperative (smiling), No acute distress - Head Head exam: Atraumatic, Normocephalic, Normal inspection - Eye Eye exam: Normal appearance, EOMI. negative: Conjunctival injection, Periorbital swelling, Periorbital tenderness - ENT ENT exam: Normal exam, Mucous membranes moist Ear exam: Normal external inspection Nasal Exam: Normal inspection - Neck Neck exam: Normal inspection, Full ROM - Respiratory Respiratory exam: Normal lung sounds bilaterally. negative: Respiratory distress - Cardiovascular Cardiovascular Exam: Regular rate, Normal rhythm, Systolic murmur (systolic ejection murmur, 3/6) - GI/Abdominal GI/Abdominal exam: Soft, Normal bowel sounds. negative: Tenderness - Extremities Extremities exam: Normal inspection, Full ROM. negative: Pedal edema, Tenderness - Back Back exam: Reports: Normal inspection. Denies: Vertebral tenderness - Neurological Neurological exam: Alert - Psychiatric Psychiatric exam: negative: Anxious, Depressed Assessment and Plan - Assessment and Plan (1) Altered mental status Current Visit: Yes Status: Acute Qualifiers: Altered mental status type: unspecified Qualified Code(s): R41.82 - Altered mental status, unspecified Base Code: R41.82 - ALTERED MENTAL STATUS, UNSPECIFIED Priority: High Comment: - Negative CT for acute process. 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 - Normal CBC, no evidence of infection. - Negative for pain today. No complaints/evidence of constipation or urinary retention. - Pt has dementia at baseline. Explained to daughter that dementia usually has a stepwise decline with time. - Continue memantine and donepezil. 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 - Will D/C celexa and replace with zoloft given that celexa increases QTC with donepezil. - BP now at goal. - Likley will need higher level of care, Case management c/s placed. (2) HTN, goal below 150/90 Current Visit: Yes Status: Chronic Base Code: I10 - ESSENTIAL (PRIMARY) HYPERTENSION Priority: High Comment: - Clonidine worn off BP in 170-200's this AM. - Restart home HCTZ @ 12.5mg, Lisinopril 15mg, Hold metoprolol (HR 60's). - Will increase lisinopril further if needed. (3) Hypokalemia Current Visit: Yes Status: Acute Base Code: E87.6 - HYPOKALEMIA Priority: Medium Comment: - Resolved. - rpt in AM (4) Prolonged QT interval Current Visit: Yes Status: Acute Base Code: R94.31 - ABNORMAL ELECTROCARDIOGRAM [ECG] [EKG] Comment: - QTC 527 in ED - Will D/C celexa and replace with zoloft given that celexa increases QTC with donepezil. - Rpt EKG today QTC 507, will rpt tomorrow to see if will trend down further. (5) Generalized weakness Current Visit: Yes Status: Acute Base Code: R53.1 - WEAKNESS Priority: High Comment: - Likely cause of fall in combination with worsening dementia. - PT and OT rec inpt rehab, pt placed at facility for Wednesday. (6) Dementia Current Visit: Yes Status: Chronic Qualifiers: Dementia type: vascular dementia Dementia behavioral disturbance: with behavioral disturbance Qualified Code(s): F01.51 - Vascular dementia with behavioral disturbance Base Code: F03.90 - UNSPECIFIED DEMENTIA WITHOUT BEHAVIORAL DISTURBANCE Priority: Medium Comment: - likely worsening dementia. - Continue donepezil and mamantine as prescribed. (7) DVT prophylaxis Current Visit: Yes Status: Acute Base Code: [id number] - Priority: Low Comment: - Given recent falls and risk for intracranial bleed will hold off on pharmacotherapy at this time. Will continue aspirin as prescribed. - Will hold off on SCD's given that she has dementia and will likely agitate the pt and will contribute to delerium. Daughter states that the pt has owning issues. - Disposition Disposition: pending PT/OT eval and placement Results - Labs Result Diagrams: 08/20/18 06:25 08/20/18 06:25 Labs Last 24 Hours: Laboratory Results - last 24 hr 08/18/18 08/19/1808/20/18 14:50 10:30 06:25 WBC 5.3 RBC 3.69 L Hgb 11.5 L Hct 35.9 MCV 97.3 H MCH 31.1 MCHC 32.0 RDW 14.7 H Plt Count 269 MPV 9.7 Neutrophils % 47.0 Eosinophils % Not Reportable Basophils % Not Reportable Lymphocytes 43.0 Monocytes 7.0 Platelet Estimate Normal RBC Morphology Normal Eosinophil Count 3.0 Sodium Potassium Chloride Carbon Dioxide Anion Gap BUN Creatinine Estimated GFR Random Glucose Calcium TSH 1.34 Urine Color Yellow Urine Appearance Clear Urine pH 8.0 Ur Specific [place] 1.015 Urine Protein Negative Urine Glucose (UA) Negative Urine Ketones Negative Urine Blood Negative Urine Nitrite Negative Urine Bilirubin Negative Urine Urobilinogen 0.2 Ur Leukocyte Esterase Negative 08/20/18 06:25 WBC RBC Hgb Hct MCV MCH MCHC RDW Plt Count MPV Neutrophils % Eosinophils % Basophils % Lymphocytes Monocytes Platelet Estimate RBC Morphology Eosinophil Count Sodium 143 Potassium 3.5 Chloride 105 Carbon Dioxide 26.0 Anion Gap 12.0 BUN 12 Creatinine 0.7 Estimated GFR > 60 Random Glucose 91 Calcium 9.1 TSH Urine Color Urine Appearance Urine pH Ur Specific [place] Urine Protein Urine Glucose (UA) Urine Ketones Urine Blood Urine Nitrite Urine Bilirubin Urine Urobilinogen Ur Leukocyte Esterase DVT/PE Assessment - Risk for VTE Risk for VTE: No Risk Level: Moderate Risk Assessment Date: 08/19/18 Risk Assessment Time: 13:40 VTE Orders Placed or Will Be Placed: No VTE Reason for No Prophylaxis: Contraindicated (given fall risk) - Active Medicaitons Current Medications: Current Medications Acetaminophen (Tylenol 325mg) 650 mg PO Q4H PRN PRN Reason: PAIN - MILD(1-4)/FEVER Last Admin: 08/19/18 01:43 Dose: 650 mg Aspirin (Ecotrin (Ec)) 81 mg PO DAILY [facility] Last Admin: 08/19/18 09:56 Dose: 81 mg Atorvastatin Calcium (Lipitor) 10 mg PO QHS [facility] Last Admin: 08/19/18 22:27 Dose: 10 mg Donepezil HCl (Aricept) 10 mg PO DAILY [facility] Hydrochlorothiazide (Hctz 12.5mg) 12.5 mg PO DAILY [facility] Lisinopril (Zestril) 15 mg PO DAILY [facility] Memantine (Namenda) 10 mg PO BID [facility] Non-Formulary Medication (Cyclosporine [Restasis]) 1 each OP BID [facility] Non-Formulary Medication (Guaifen/Dextromethorphan/Pe [Robafen Cf Liquid]) 5 ml PO Q6H PRN PRN Reason: COUGH Non-Formulary Medication (Ipratropium [place] [Atrovent]) 2 spray NS TID [facility] Potassium Chloride (Klor-Con) 10 meq PO DAILY [facility] Last Admin: 08/19/18 09:55 Dose: 10 meq Sertraline HCl (Zoloft) 75 mg PO DAILY [facility] AMI Plan - Labs Result Diagrams: 08/20/18 06:25 08/20/18 06:25
[2018-08-20] MEDS: ATORVASTATIN 20 MG TABLET PO SCH (21:12)
[2018-08-21 06:31] LABS: BASO % 0.4 % (0-6); EOS % 3.2 % (0-6); GRAN % 44.1 % (47-80); HEMATOCRIT 36.4 % (35.0-47.0); MEAN CELL VOLUME 96.6 fl (81-97); MEAN CORPUSCULAR HEMOGLOBIN 31.8 pg (27-33); MEAN PLATELET VOLUME 9.8 fl (7.4-10.4); MONO % 8.3 % (0-9); PLATELET COUNT 272 K/uL (130-400); RED BLOOD COUNT 3.77 M/uL (3.80-5.40); RED CELL DISTRIBUTION WIDTH 14.5 % (11.5-14.5); WHITE BLOOD COUNT W/O DIFF 5.6 K/uL (4.2-12.2)
[2018-08-21 06:49] LABS: BLOOD UREA NITROGEN 11 mg/dL (8-23); CREATININE 0.6 mg/dL (0.5-0.9); EST GLOMERULAR FILTRATION RATE > 60 mL/min; GLUCOSE,RANDOM 88 mg/dL (74-109)
[2018-08-21] MEDS ORDERED: HYDROCHLOROTHIAZIDE 12.5 MG CAPSULE PO ONE (09:47)
[2018-08-21] MEDS ORDERED: POTASSIUM CHLORIDE 20 MEQ TABLET PO SCH (10:00)
--- NOTE | 2018-08-21 10:03 | Physician Progress Note ---
Subjective - Date Date of Physician Progress Note: 08/21/18 - Subjective Subjective Comment: Pt doing well this morning, keeps saying she is ready to go home. Daughter came in and states that she appears to be back to baseline other than her weakness. No complaints today. Objective - Vital Signs Vital Signs: Vital Signs - Last 24 Hrs Temp Pulse Resp BP Pulse Ox 08/21/18 06:00 98.1 F 55 L 16 154/73 95 08/20/18 22:00 97.7 F 62 16 149/72 93 L 08/20/18 18:00 97.7 F 60 18 136/61 95 08/20/18 13:59 97.6 F 70 18 150/83 95 - General General Appearance: Alert, Cooperative (smiling and joking), No acute distress Limitations: Other (Pt has dementia is limited with orientation but is alert and follows commands well. Smiling) - Head Head exam: Atraumatic, Normocephalic, Normal inspection - Eye Eye exam: Normal appearance, EOMI. negative: Conjunctival injection, Periorbital swelling, Periorbital tenderness - ENT ENT exam: Normal exam, Mucous membranes moist Ear exam: Normal external inspection Nasal Exam: Normal inspection Throat exam: Normal inspection. negative: Tonsillar erythema, Tonsillar exudate - Neck Neck exam: Normal inspection, Full ROM - Respiratory Respiratory exam: Normal lung sounds bilaterally. negative: Respiratory distress - Cardiovascular Cardiovascular Exam: Regular rate, Normal rhythm, Systolic murmur (systolic ejection murmur, 3/6) - GI/Abdominal GI/Abdominal exam: Soft, Normal bowel sounds. negative: Tenderness - Rectal Rectal exam: Deferred - exam: Deferred - Extremities Extremities exam: Normal inspection, Full ROM. negative: Pedal edema, Tenderness - Neurological Neurological exam: Alert - Psychiatric Psychiatric exam: negative: Anxious, Depressed Assessment and Plan - Assessment and Plan (1) Altered mental status Current Visit: Yes Status: Acute Qualifiers: Altered mental status type: unspecified Qualified Code(s): R41.82 - Altered mental status, unspecified Base Code: R41.82 - ALTERED MENTAL STATUS, UNSPECIFIED Priority: High Comment: - Per daughter pt is back to baseline today. - Negative CT for acute process. 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 - Normal CBC, no evidence of infection. - Negative for pain today. No complaints/evidence of constipation or urinary retention. - Pt has dementia at baseline. - Continue memantine and donepezil. - campus monitor did not show arrythmia. - D/C'd celexa and replace with zoloft given that celexa increases QTC with donepezil. - BP now at goal. - Rohit will need higher level of care, Case management c/s'd. (2) HTN, goal below 150/90 Current Visit: Yes Status: Chronic Base Code: I10 - ESSENTIAL (PRIMARY) HYPERTENSION Priority: High Comment: - Restart home HCTZ @ 12.5mg, Lisinopril 15mg, Hold metoprolol (HR 60's). - Will increase lisinopril further if needed. (3) Hypokalemia Current Visit: Yes Status: Acute Base Code: E87.6 - HYPOKALEMIA Priority: Medium Comment: - Low today given that HCTZ was restarted. - 20meq Tablet given - recheck in AM (4) Prolonged QT interval Current Visit: Yes Status: Acute Base Code: R94.31 - ABNORMAL ELECTROCARDIOGRAM [ECG] [EKG] Comment: - QTC 527 in ED - D/C'd celexa and replaced with zoloft given that celexa increases QTC with donepezil. 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 - PT and OT rec inpt rehab, pt placed at facility for Wednesday. (6) Dementia Current Visit: Yes Status: Chronic Qualifiers: Dementia type: vascular dementia Dementia behavioral disturbance: with behavioral disturbance Qualified Code(s): F01.51 - Vascular dementia with behavioral disturbance Base Code: F03.90 - UNSPECIFIED DEMENTIA WITHOUT BEHAVIORAL DISTURBANCE Priority: Medium Comment: - Continue donepezil and mamantine as prescribed. (7) DVT prophylaxis Current Visit: Yes Status: Acute Base Code: [id number] - Priority: Low Comment: - Given recent falls and risk for intracranial bleed will hold off on pharmacotherapy at this time. Will continue aspirin as prescribed. - Will hold off on SCD's given that she has dementia and will likely agitate the pt and will contribute to delerium. Daughter states that the pt has sundowning issues. - Disposition Disposition: pending PT/OT eval and placement Results - Labs Result Diagrams: 08/21/18 05:50 08/21/18 05:50 Labs Last 24 Hours: Laboratory Results - last 24 hr 08/21/18 08/21/18 05:50 05:50 WBC 5.6 RBC 3.77 L Hgb 12.0 Hct 36.4 MCV 96.6 MCH 31.8 MCHC 33.0 RDW 14.5 Plt Count 272 MPV 9.8 Gran % 44.1 L Lymphocytes % 44.0 Monocytes % 8.3 Eosinophils % 3.2 Basophils % 0.4 Sodium 142 Potassium 3.3 L Chloride 103 Carbon Dioxide 27.0 Anion Gap 12.0 BUN 11 Creatinine 0.6 Estimated GFR > 60 Random Glucose 88 Calcium 9.3 DVT/PE Assessment - Risk for VTE Risk for VTE: No Risk Level: Moderate Risk Assessment Date: 08/19/18 Risk Assessment Time: 13:40 VTE Orders Placed or Will Be Placed: No VTE Reason for No Prophylaxis: Contraindicated (given fall risk) - Active Medicaitons Current Medications: Current Medications Acetaminophen (Tylenol 325mg) 650 mg PO Q4H PRN PRN Reason: PAIN - MILD(1-4)/FEVER Last Admin: 08/19/18 01:43 Dose: 650 mg Aspirin (Ecotrin (Ec)) 81 mg PO DAILY [facility] Last Admin: 08/20/18 10:33 Dose: 81 mg Atorvastatin Calcium (Lipitor) 10 mg PO QHS [facility] Last Admin: 08/20/18 21:12 Dose: 10 mg Donepezil HCl (Aricept) 10 mg PO DAILY [facility] Last Admin: 08/20/18 10:37 Dose: 10 mg Hydrochlorothiazide (Hctz 12.5mg) 12.5 mg PO NOW ONE Stop: 08/21/18 09:48 Hydrochlorothiazide (Hctz 12.5mg) 12.5 mg PO DAILY [facility] Lisinopril (Zestril) 15 mg PO DAILY [facility] Last Admin: 08/20/18 10:35 Dose: Not Given Memantine (Namenda) 10 mg PO BID [facility] Last Admin: 08/20/18 21:11 Dose: 10 mg Non-Formulary Medication (Cyclosporine [Restasis]) 1 each OP BID [facility] Non-Formulary Medication (Guaifen/Dextromethorphan/Pe [Robafen Cf Liquid]) 5 ml PO Q6H PRN PRN Reason: COUGH Non-Formulary Medication (Ipratropium [place] [Atrovent]) 2 spray NS TID [facility] Potassium Chloride (Klor-Con) 20 meq PO DAILY [facility] Sertraline HCl (Zoloft) 75 mg PO DAILY [facility] Last Admin: 08/20/18 10:37 Dose: 75 mg AMI Plan - Labs Result Diagrams: 08/21/18 05:50 08/21/18 05:50
[2018-08-21] MEDS: SERTRALINE HCL 50 MG TABLET PO SCH (10:18)
[2018-08-21] MEDS: LISINOPRIL 5 MG TABLET PO SCH (10:18)
[2018-08-21] MEDS: MEMANTINE HCL 10 MG TABLET PO SCH ×2 (10:19→22:33)
[2018-08-21] MEDS: DONEPEZIL HCL 5 MG TABLET PO SCH (10:19)
[2018-08-21] MEDS: ASPIRIN 81 MG TABEC PO SCH (10:19)
[2018-08-21] MEDS: ATORVASTATIN 20 MG TABLET PO SCH (22:33)
[2018-08-22 07:00] LABS: BASO % 0.3 % (0-6); EOS % 2.6 % (0-6); GRAN % 39.8 % (47-80); HEMATOCRIT 40.7 % (35.0-47.0); HEMOGLOBIN 13.1 gm/dl (11.6-16.0); LYMPH % 48.7 % (16-45); MEAN CELL VOLUME 97.6 fl (81-97); MEAN CORPUSCULAR HEMOGLOBIN 31.4 pg (27-33); MEAN CORPUSCULAR HGB CONC 32.2 g/dl (32-36); MEAN PLATELET VOLUME 9.9 fl (7.4-10.4); MONO % 8.6 % (0-9); PLATELET COUNT 284 K/uL (130-400); RED BLOOD COUNT 4.17 M/uL (3.80-5.40); RED CELL DISTRIBUTION WIDTH 14.7 % (11.5-14.5); WHITE BLOOD COUNT W/O DIFF 6.2 K/uL (4.2-12.2)
[2018-08-22 07:20] LABS: BLOOD UREA NITROGEN 10 mg/dL (8-23); CREATININE 0.7 mg/dL (0.5-0.9); EST GLOMERULAR FILTRATION RATE > 60 mL/min; GLUCOSE,RANDOM 88 mg/dL (74-109)
--- NOTE | 2018-08-22 07:20 | RADIOLOGY REPORT ---
EXAM: CHEST, SINGLE VIEW HISTORY: DETENTION PLACEMENT. TECHNIQUE: A single view of the chest were obtained. Comparison: Chest radiograph 02/15/18. FINDINGS: Median sternotomy wires all of which appear chronically fractured. The cardiac silhouette is within normal size limited. The thoracic aorta is calcified and tortuous. The pulmonary vasculature is nondilated. No focal pulmonary consolidation. Likely minimal atelectasis in the left lung base. No pleural effusion or pneumothorax. No definite acute osseous findings. IMPRESSION: NO ACUTE PULMONARY FINDINGS. JOB NUMBER: [id number] MTDD
[2018-08-22] MEDS: LISINOPRIL 5 MG TABLET PO SCH (09:35)
[2018-08-22] MEDS: HYDROCHLOROTHIAZIDE 12.5 MG CAPSULE PO SCH ×2 (09:35→10:32)
[2018-08-22] MEDS: DONEPEZIL HCL 5 MG TABLET PO SCH (09:35)
[2018-08-22] MEDS: MEMANTINE HCL 10 MG TABLET PO SCH (09:36)
[2018-08-22] MEDS: SERTRALINE HCL 50 MG TABLET PO SCH (09:36)
[2018-08-22] MEDS: ASPIRIN 81 MG TABEC PO SCH (09:36)
--- NOTE | 2018-08-22 09:41 | Occupational Therapy Tx Note ---
Occupational Therapy Tx Note - Treatment Note Tolerated: Good Total Time Spent With Patient: 30 (ADL) Occupational Therapy Treatment Note: Detail (S: Pt resting in bed, willing to participate. O: Supine to sit Indly with use of bed rail. Pt donned slipper socks at EOB with CG for sitting balance. Sit to stand and amb to toilet with 2 wheeled walker and CG assist. Pt completed toileting Indly. Donned briefs with min assist to start right foot into leg of brief. Sit to stand from toilet with min assist and pt able to pull briefs over hips with CG assist. Pt amb to sink with 2 wheeled walker and completed washing face and hands Indly. Pt brushed hair Indly. Pt oriented to location and was appropriate with treatment. Pt left up in chair. A: Pt requires min assist with LE dressing and sit to stand from toilet height, CG for ambulating in room, oriented to location. Pt requires extra time for self care and mobility due to decreased endurance.) Occupational Therapy Problem List: Detail (1. Decreased Ind with self care skills. 2. Decreased orientation to place, month/year. 3. Decreased endurance needed for safe and Ind mobility and self cares.) Occupational Therapy Goals: 1. Pt will be Ind and safe with total body dressing. 2. Pt will oriented to place and month. 3. Pt will improve overall endurance to allow safe and Ind functional mobility. Prognosis: Good Occupational Therapy Plan: OT 2-4 times per week to address self cares, functional mobility, cognition and activity tolerance. Pt would benefit from IP rehab stay to maximize her Ind and safety.
--- NOTE | 2018-08-22 09:45 | Physical Therapy Tx Note ---
Physical Therapy Tx Note - Treatment Note Tolerated: Good Total Time Spent With Patient: 15 Physical Therapy Tx Note: Detail (The patient was in bed when PT arrived. The patient was independent with supine to sit. The patient was independent with sit to and from stand transfer and required minimal PA with sit to stand from toilet. The patient ambulated 50 feet x1 with front wheeled walker with supervision for safety. The patient required assist to steer walker when turning. The patient ambulated with a slow, shuffling gait pattern. The patient was distracted throughout gait and at times pushed the walker too far in front. The patient's balance using the Tinetti Assessment Tool which is in the high risk for falling category. The patient was left in chair with call light in place and nursing staff present. The patient required less assist with mobility today. The patient continues to exhibit poor safety judgement and requires supervison and physical assistance at times.) Physical Therapy Problem List: Detail (1)Cognitive Status 2) Decreased LE muscular endurance 3) Assistance with transfers and ambulation 4) Decreased standing balance) Physical Therapy Goals: 1) The patient will ambulate household distances with supervision for safety. 2) The patient will be independent / supervision with all transfers. 3) The patient will tolerate 30 minutes of physical activity with one rest period. 4) Assess the patient's balance using objective balance test. Physical Therapy Plan: PT 1 time a day M-F for gait training, transfer training , balance and LE strengthening/ muscular endurance exercises. Recommend subacute rehab.
[2018-08-22] MEDS ORDERED: POTASSIUM CHLORIDE 20 MEQ TABLET PO SCH (10:00)
--- NOTE | 2018-08-22 10:45 | Discharge Summary ---
Providers Discharge Summary Date: 08/22/18 Date of admission: 08/18/18 18:41 Expected Date of Discharge: 08/22/18 Attending physician: YUNIER NUNEZ Primary care physician: Tad Loera Consults: Consult Orders 08/19/18 11:37 Consult - Case Management Now Comment: Reason For Exam: Pt needs higher care facility, daughter present. Physical Exam - Vital Signs Vital Signs: Vital Signs - Last 24 Hrs Temp Pulse Pulse Resp BP Pulse Ox 08/22/18 10:00 97.8 F 84 18 101/56 96 08/22/18 09:00 55 L 84 18 08/22/18 06:00 98.2 F 58 L 17 138/72 93 L 08/22/18 02:00 98.1 F 84 16 149/76 94 L 08/21/18 21:25 97.9 F 60 16 161/55 95 08/21/18 16:52 97.5 F L 65 16 115/69 94 L 08/21/18 14:00 98.3 F 65 18 144/66 94 L - General General Appearance: Alert, Oriented x3, Cooperative (smiling and joking), No acute distress - Head Head exam: Atraumatic, Normocephalic, Normal inspection - Eye Eye exam: Normal appearance, EOMI. negative: Conjunctival injection, Periorbital swelling, Periorbital tenderness - ENT ENT exam: Normal exam, Mucous membranes moist Ear exam: Normal external inspection Nasal Exam: Normal inspection Throat exam: Normal inspection. negative: Tonsillar erythema, Tonsillar exudate - Neck Neck exam: Normal inspection, Full ROM - Respiratory Respiratory exam: Normal lung sounds bilaterally. negative: Respiratory distress - Cardiovascular Cardiovascular Exam: Regular rate, Normal rhythm, Systolic murmur (systolic ejection murmur, 3/6) - GI/Abdominal GI/Abdominal exam: Soft, Normal bowel sounds. negative: Tenderness - Rectal Rectal exam: Deferred - exam: Deferred - Extremities Extremities exam: Normal inspection, Full ROM. negative: Pedal edema, Tenderness - Back Back exam: Reports: Normal inspection. Denies: Vertebral tenderness - Neurological Neurological exam: Alert - Psychiatric Psychiatric exam: negative: Anxious, Depressed Hospitalization - Hospitalization Admission Diagnosis: 1. Labile blood pressure with Hypotension. - Problem List/Discharge Diagnosis (1) Altered mental status Current Visit: Yes Status: Acute Discharge Diagnosis: Altered mental status type: unspecified Qualified Code(s): R41.82 - Altered mental status, unspecified Base Code: R41.82 - ALTERED MENTAL STATUS, UNSPECIFIED Comment: - Per daughter pt is back to baseline. Did have a very large BM during her stay which may have helped. BP better controlled. - Negative CT for acute process. 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 - Normal CBC, no evidence of infection. - Negative for pain today. No complaints/evidence of constipation or urinary retention. - Pt has dementia at baseline. - Continue memantine and donepezil. 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 - D/C'd celexa and replace with zoloft given that celexa increases QTC with donepezil. - BP now at goal. (2) HTN, goal below 150/90 Current Visit: Yes Status: Chronic Base Code: I10 - ESSENTIAL (PRIMARY) HYPERTENSION Comment: - Restart home HCTZ @ 12.5mg, Lisinopril 15mg - D/C metoprolol given low HR - Will increase lisinopril further if needed. (3) Hypokalemia Current Visit: Yes Status: Acute Base Code: E87.6 - HYPOKALEMIA Comment: - Low today 3.3 2/2 to HCTZ - Start 40meQ daily. - Recheck in one week. (4) Prolonged QT interval Current Visit: Yes Status: Acute Base Code: R94.31 - ABNORMAL ELECTROCARDIOGRAM [ECG] [EKG] Comment: - QTC 527 in ED - D/C'd celexa and replaced with zoloft given that celexa increases QTC with donepezil. - Rpt EKG 08/20 QTC 507 - Rpt EKG 08/21 QTC 522 - Rpt EKG 08/22 QTC 486, trended down, pt asymptomatic, no issues on registered nurse cardiac during stay/ (5) Generalized weakness Current Visit: Yes Status: Acute Base Code: R53.1 - WEAKNESS Comment: - Likely cause of fall in combination with worsening dementia. - PT and OT rec inpt rehab, transferring today. (6) Dementia Current Visit: Yes Status: Chronic Discharge Diagnosis: Dementia type: vascular dementia Dementia behavioral disturbance: with behavioral disturbance Qualified Code(s): F01.51 - Vascular dementia with behavioral disturbance Base Code: F03.90 - UNSPECIFIED DEMENTIA WITHOUT BEHAVIORAL DISTURBANCE Comment: - Continue donepezil and mamantine as prescribed. (7) DVT prophylaxis Current Visit: Yes Status: Acute Base Code: [id number] - Comment: - Given recent falls and risk for intracranial bleed will hold off on pharmacotherapy at this time. Will continue aspirin as prescribed. - Will hold off on SCD's given that she has dementia and will likely agitate the pt and will contribute to delerium. Daughter states that the pt has sundowning issues. - Disposition inpt rehab - Hospitalization Course Disposition: Inpatient Rehab Facility Hospital Course: PMH: HTN, CAD, Dementia, dysphagia ED COURSE: 08/18/18 Daughter providing hx since the pt is a poor historian 2/2 to dementia. Daughter states that 2 days ago she was having dinner with her mother who was mumbling and couldn't focus very well. She states that she had asked the assisted living facility if they thought she should be evaluated for a stroke but she states that they said the hospital would not do anything for treatment if it was a stroke anyway. She decided not to bring her into the ER that day. Yesterday the daughter states that she received a phone call from the assisted living facility stating that the pt had a fall. She did not witness it but the pt did hit her head. She states that upon arrival to the ED her mother was complaining of a headache and her BP was elevated. Vitals: T98.5, P64, BP 199/109, RR 18 Labs: UA neg, CBC normal, CMP normal except K 3.3, TSH wnl. Imaging:CT head showed no acute process but old ischemic infarcts present. CT cervical spine did not show acute process. EKG: QTC 527, LVH otherwise wnl. Pt was given clonidine per Dr. Loera's permission and her BP dropped to 90/60' s. Pt was given some fluid to help bring up her BP and she was admitted overnight for observation given that she is at high risk for falls with her low BP. HOSPITAL COURSE: 08/18/18-08/22/18 Pt blood pressure remained normal with increase of her home lisinopril after clonidine wore off. Her QT interval was elevated so citalopram was switched to zoloft and QTC reduced to 486. The pt was on a registered nurse cardiac during her entire stay and did not have any evidence of arrhythmia 2/2 to increased QT. Her Metoprolol was held 2/2 to low HR during her stay - she did not need it to help with her BP given that lisinopril was increased. Per her daughter once her BP was better managed and after having a very large BM one day after admission her mental status returned to baseline. She did have an eval for PT/OT and she was deemed as a good candidate for inpt rehab. Pt's K+ was low during her stay and daily dose of K was increased to 40meQ daily. PCP to follow up on - rpt BMP in one week to check K+ level given increased daily dose of 40 meQ daily. - D/C'd metoprolol 2/2 to low HR - Switched citalopram to zoloft given increased QT Procedures: Imaging and X-Rays 08/18/18 11:55 CERVICAL SPINE WO CONTRAST [CT] Stat HEAD WO CONTRAST [CT] Stat 08/19/18 14:44 CHEST 1 VIEW [RAD] Stat Cardiology Procedures 08/18/18 17:41 EKG NOW 08/18/18 18:56 Rn Operating Room .Continuous EKG QDX2@0600 08/20/18 07:00 EKG ONCE 08/21/18 08:00 EKG ONCE 08/22/18 08:49 EKG NOW Abnormal Labs: Abnormal Lab Results 08/18/18 08/18/18 08/20/18 Range/Units 14:50 14:50 06:25 RBC 3.69 L (3.80-5.40) M/uL Hgb 11.5 L (11.6-16.0) gm/dl MCV 97.3 H (81-97) fl RDW 14.6 H 14.7 H (11.5-14.5) % Gran % (47-80) % Lymphocytes % (16-45) % Potassium 3.3 L (3.4-4.5) mmol/L Total Protein 6.4 L (6.6-8.7) g/dL 08/21/18 08/21/18 08/22/18 Range/Units 05:50 05:50 06:30 RBC 3.77 L (3.80-5.40) M/uL Hgb (11.6-16.0) gm/dl MCV 97.6 H (81-97) fl RDW 14.7 H (11.5-14.5) % Gran % 44.1 L 39.8 L (47-80) % Lymphocytes % 48.7 H (16-45) % Potassium 3.3 L (3.4-4.5) mmol/L Total Protein (6.6-8.7) g/dL 08/22/18 Range/Units 06:30 RBC (3.80-5.40) M/uL Hgb (11.6-16.0) gm/dl MCV (81-97) fl RDW (11.5-14.5) % Gran % (47-80) % Lymphocytes % (16-45) % Potassium 3.3 L (3.4-4.5) mmol/L Total Protein (6.6-8.7) g/dL Condition at Discharge: (1) Good VTE Discharge VTE Reason For No Overlap Therapy: Not Indicated Discharge Medications - Discharge Medications Prescriptions: Lisinopril [Prinivil] 10 mg PO DAILY #30 tab Potassium Chloride [Klor-Con] 40 meq PO DAILY #30 tablet.sa Sertraline HCl [Zoloft] 75 mg PO DAILYWM #45 tablet Home Medications: Ambulatory Orders Acetaminophen [Tylenol Extra Strength] 500 mg PO TID 12/31/15 [Last Taken ] Aspirin, Regular 81 mg PO DAILY 12/31/15 [Last Taken 08/18/18] Atorvastatin Calcium [Lipitor] 10 mg PO QHS 12/31/15 [Last Taken 08/17/18] Cyclosporine [Restasis] 1 each OP BID 12/31/15 [Last Taken 12/31/15] Magnesium Hydroxide [Milk of Magnesia] 30 ml PO ASDIR PRN 12/31/15 [Last Taken Unknown] Fexofenadine HCl 180 mg PO DAILY 04/13/16 [Last Taken 08/18/18] Ipratropium [place] [Atrovent] 2 spray NS TID 04/13/16 [Last Taken Unknown] Guaifenesin [Mucinex] 600 mg PO BID PRN 07/17/16 [Last Taken Unknown] Polyethylene Glycol 3350 [Miralax] 1 packet PO DAILY PRN 07/17/16 [Last Taken Unknown] Meloxicam [Mobic] 7.5 mg PO DAILY 01/27/17 [Last Taken 08/18/18] Memantine HCl [Namenda Xr] 28 mg PO DAILY 01/27/17 [Last Taken 08/18/18] Calcium Carbonate [Tums] 500 mg PO Q6H 07/13/17 [Last Taken Unknown] Donepezil HCl [Aricept] 10 mg PO DAILY 07/13/17 [Last Taken 08/18/18] Lisinopril [Prinivil] 10 mg PO DAILY #30 tab 08/18/18 [Last Taken Unknown] Hydrochlorothiazide [Hctz] 12.5 mg PO DAILY capsule 08/22/18 [Last Taken Unknown] Potassium Chloride [Klor-Con] 40 meq PO DAILY #30 tablet.sa 08/22/18 [Last Taken Unknown] Sertraline HCl [Zoloft] 75 mg PO DAILYWM #45 tablet 08/22/18 [Last Taken Unknown ] Discharge Plan - Discharge Instructions Activity at Discharge: As Per Physical Therapy Diet at Discharge: Advance to Usual Diet Instructions: Fall Prevention for Older Adults (ED) Quality Measures - Quality Measures Quality Measures: Advance Directives, Documentation of Current Medications in Medical Record, Elder Maltreatment Screen and Follow-Up Plan, Screening for High Blood Pressure and F/U Documented - Current Medications Quality Measure: Measure #130: Documentation of Current Medications Documentation of Current Medications: <Current Medications Documented/Reviewed> [G5739] - Blood Pressure Screening Quality Measure: Screening for High Blood Pressure and Follow-Up Documented Does Patient Have Any of the Following: Active Dx of HTN Blood Pressure Classification: Hypertensive Reading Systolic Measurement: 199 Diastolic Measurement: 109 Screening for High Blood Pressure: Patient Exclusion, Hx of HTN [G9744] - Advance Directives Quality Measure: Measure #47: Care Plan Advance Directives Established: No Advance Directives Information Provided To Patient: Already Provided Advance Directives on File: No Living Will: Yes Power of School Supervisor: Yes Power of School Supervisor Name: Rossana Mackenzie Advance Care Planning: <Care Plan/Decision Maker Documented; Discussed & Documented> [[id number]] - Elder Abuse Suspicion Index Screening: Elder Abuse Suspicion Index Screening Rely on people for bathing, dressing, shopping, banking, etc: Yes Prevented from getting food, clothes, medication, etc: No Made to feel shamed or threatened by someone: No Forced to sign papers or use money against will: No Feel afraid, touched in ways not wanted or hurt physically: No Poor eye contact, withdrawn, malnourished, cuts or bruises: No Screening Result: Negative result EASI Reference Information: Elvni WARNER, Romi C, Demetria D, Prateek Lyon.Development and validation of a tool to assist physicians identification of elder abuse: The Elder Abuse Suspicion Index (EASI ). Journal of Elder Abuse and Neglect, 2008; 20 (3): 276-300. - Elder Maltreatment Screen Quality Measures: Elder Maltreatment Screen and Follow-Up Plan Elder Maltreatment Screen: <Negative, No Follow-Up Plan Required> [G8734]
== END 2018-08-22 14:40 ==
LOC: ER 11:47 → MEDSURG 18:41
PROVIDERS: ADMIT Family Medicine; ATTEND Family Medicine
DX: S09.8XXA Other specified injuries of head, initial encounter (principal); W18.39XA Other fall on same level, initial encounter; Z91.81 History of falling; Y92.89 Other specified places as the place of occurrence of the external cause; Y99.8 Other external cause status; R41.82 Altered mental status, unspecified; F01.51 Vascular dementia, unspecified severity, with behavioral disturbance; I10 Essential (primary) hypertension; R94.31 Abnormal electrocardiogram [ECG] [EKG]; I69.854 Hemiplegia and hemiparesis following other cerebrovascular disease affecting left non-dominant side; J44.9 Chronic obstructive pulmonary disease, unspecified; E87.6 Hypokalemia; K22.70 Barrett's esophagus without dysplasia; Z87.891 Personal history of nicotine dependence
CPT/HCPCS: 70450; 71045; 72125; 80048; 80053; 81003; 84443; 85025; 85027; 93005; 93010; 93041; 97530; 97535; 99217; 99218; 99225; 99285; J7030